=== PATIENT | male | born 1975 | race Two or more races ===

== ENCOUNTER 2024-08-11 11:01 | Emergency (ER) | payer OTHER ==
[~2024-08-11] VITALS: Ht 182.9 cm; Wt 72.6 kg
[2024-08-11] MEDS ORDERED: LOTREL 5-10 MG1 CAP (11:47)
[2024-08-11] MEDS ORDERED: CEFTRIAXONE SODIUM 1,000 MG VIAL IM ONE (12:00)
[2024-08-11] MEDS ORDERED: TAMSULOSIN HCL 0.4 MG CAP PO ONE (12:00)
[2024-08-11] MEDS ORDERED: KETOROLAC TROMETHAMINE 60 MG VIAL IM ONE (12:00)
[2024-08-11 12:24] LABS: HEMOGLOBIN 16.2 g/dL (13-16.00); MEAN CELL VOLUME 86.2 fL (80.0-100.00); MEAN CORPUSCULAR HEMOGLOBIN 29.7 pg (27.00-32.0); MEAN CORPUSCULAR HGB CONC 34.5 g/dl (32.0-36.0); PLATELET COUNT 235 K/uL (150-450); RED BLOOD COUNT 5.46 M/uL (4.00-6.00); RED CELL DISTRIBUTION WIDTH 14.2 % (11.5-14.5)
[2024-08-11 12:43] LABS: ALBUMIN 4.1 gm/dL (3.4-5.0); BILIRUBIN TOTAL 0.74 mg/dL (0.3-1.2); CALCIUM 9.1 mg/dL (8.5-10.1); CREATININE SERUM 1.34 mg/dL (0.70-1.30); GFR 56.42; GLOBULINA 3.3 G/DL (2.4-3.5); POTASSIUM 3.85 mEq/L (3.5-5.1); TOTAL PROTEIN 7.4 gm/dL (6.4-8.2)
[2024-08-11 13:59] LABS: URINE APPEARANCE Clear; URINE BILIRRUBIN Negative (NEGATIVE); URINE BLOOD Large; URINE COLOR Yellow; URINE GLUCOSE Negative (NEGATIVE); URINE KETONE Trace (NEGATIVE); URINE LEUKOCYTE Negative; URINE NITRATE Negative; URINE PROTEIN Trace (NEGATIVE)
[2024-08-11 14:03] LABS: URINE EPITHELIAL CELLS 3.2 uL (0.0-38.8); URINE RBC 680.3 uL (0.0-20.8); URINE WBC 18.3 uL (0.0-23.2)
[2024-08-11 14:29] LABS: URINE CRYSTALS FEW /HPF
[2024-08-11] MEDS ORDERED: TAMS0.4C PO (18:19)
[2024-08-11] MEDS ORDERED: KETO10TA2 PO (18:19)
== END 2024-08-11 18:23 | disposition home or self-care (01) ==
LOC: ER 11:03
PROVIDERS: General Practice
DX: N20.0 Calculus of kidney (principal); R10.9 Unspecified abdominal pain; I10 Essential (primary) hypertension; Z87.442 Personal history of urinary calculi